=== PATIENT | male | born 1980 | race Caucasian/White ===

== ENCOUNTER 2016-09-28 17:25 | Inpatient (IN) | payer SELFPAY ==
[~2016-09-28] VITALS: Ht 188 cm; Wt 103.0 kg
[~2016-09-28 17:25] MED LIST: HYDR-971 PO; LEVO500T38 PO; NO HOME MEDICATIONS; OXYC5TAB88 PO
[2016-09-28] MEDS ORDERED: DIAZEPAM 10 MG/2 ML DISP.SYRIN. IV ONE ×3 (17:45→19:30)
--- NOTE | 2016-09-28 17:48 | PHYS DOC ---
Past Medical History Past Medical History: Alcoholism, Anxiety, Seizure, Other Additional Past Medical Histor: ADHD, ETOH LIVER,seizures r/t etoh withdrawl Past Surgical History: Cholecystectomy Additional Past Surgical Histo: steel plate in right hand Alcohol Use: Heavy Drug Use: Marijuana, Methamphetamine Adult General Chief Complaint Chief Complaint: WITHDRAWL HPI HPI Patient is a 35 year old male who presents after apparent alcohol withdrawal seizure. Patient's girlfriend present at bedside who contributes to history. She reports he tensed up, had generalized shaking and clenched fists, and bit his tongue. Upon coming to he was confused for a period of time. Patient reports he has tried to abruptly to cut down on his alcohol intake. Last week he drank about a gallon of Everclear over the course of 2-3 days. Today he has only had about 1-1/2 beers. He does report a history of alcohol withdrawal seizure in past. Review of Systems Review of Systems Constitutional: Denies fever or chills Eyes: Denies change in visual acuity or eye pain HENT: Denies nasal congestion or sore throat Respiratory: Denies cough or shortness of breath Cardiovascular: Denies chest pain GI: Denies abdominal pain, nausea, vomiting, bloody stools or diarrhea : Denies dysuria or hematuria Musculoskeletal: General body aches Integument: Denies rash or skin lesions Neurologic: Seizure, mild headache. Denies focal weakness or sensory changes Current Medications Current Medications Current Medications Medications (Trade) Dose Ordered Sig/Jareth Start Time Stop Time Status Last Admin Dose Admin Diazepam (Valium) 10 mg 1X ONCE 09/28/16 18:15 09/28/16 18:16 DC 09/28/16 18:53 10 MG Multivitamins/ Folic Acid/ Thiamine HCl/ Sodium Chloride (Infuvite Adult/ Iv Sodium Chloride 0.9% 1000ml Bag) 1,011.2 ml @ 1,000 mls/ hr 1X ONCE 09/28/16 18:00 09/28/16 19:00 DC 09/28/16 18:12 1,000 MLS/HR Allergies Allergies Allergies Coded Allergies Type Severity Reaction Last Updated Verified Penicillins Allergy Intermediate Rash 06/23/13 Yes Physical Exam Physical Exam Constitutional: Well developed, well nourished, non-toxic appearance HENT: Normocephalic, bilateral external ears normal; mild abrasion to L lateral tongue, tongue minimally swollen Eyes: PERRL, EOMI, conjunctiva normal, no discharge Neck: Normal range of motion, no stridor Cardiovascular: Tachycardic, regular rhythm, no murmur Lungs & Thorax: Bilateral breath sounds clear to auscultation Abdomen: Bowel sounds normal, soft, non-distended, no TTP Skin: Warm, diaphoretic, no erythema, no rash Extremities: No obvious deformity, no edema Neurologic: Alert and oriented X 3, GCS 15, CN II-XII grossly intact, strength intact and symmetrical throughout, sensation to light touch intact throughout, no dystaxia noted Psychologic: Affect normal, judgement normal, mood normal Current Patient Data Vital Signs Vital Signs Date Time Temp Pulse Resp B/P Pulse Ox O2 Delivery O2 Flow Rate FiO2 09/28/16 19:07 116 20 141/95 97 Room Air 09/28/16 17:33 98.0 98.0 Lab Values Laboratory Tests Test 09/28/16 17:30 09/28/16 17:37 White Blood Count 6.7x10^3/uL (4.0-11.0) Red Blood Count 4.71x10^6/uL (4.30-5.70) Hemoglobin 16.2g/dL (13.0-17.5) Hematocrit 47.0% (39.0-53.0) Mean Corpuscular Volume 100fL (79-100) Mean Corpuscular Hemoglobin 34pg (25-35) Mean Corpuscular Hemoglobin Concent 34g/dL (31-37) Red Cell Distribution Width 15.4% (11.5-14.5) H Platelet Count 91x10^3/uL (140-400) L Neutrophils (%) (Auto) 53% (31-73) Lymphocytes (%) (Auto) 38% (24-48) Monocytes (%) (Auto) 8% (0-9) Eosinophils (%) (Auto) 1% (0-3) Basophils (%) (Auto) 1% (0-3) Neutrophils # (Auto) 3.5x10^3uL (1.8-7.7) Lymphocytes # (Auto) 2.5x10^3/uL (1.0-4.8) Monocytes # (Auto) 0.5x10^3/uL (0.0-1.1) Eosinophils # (Auto) 0.1x10^3/uL (0.0-0.7) Basophils # (Auto) 0.0x10^3/uL (0.0-0.2) Sodium Level 141mmol/L (136-145) Potassium Level 3.4mmol/L (3.5-5.1) L Chloride Level 101mmol/L (98-107) Carbon Dioxide Level 16mmol/L (21-32) L Anion Gap 24 (6-14) H Blood Urea Nitrogen 9mg/dL (8-26) Creatinine 1.2mg/dL (0.7-1.3) Estimated GFR (Cockcroft-Gault) 69.3 Glucose Level 123mg/dL (70-99) H Calcium Level 9.7mg/dL (8.5-10.1) Magnesium Level 2.0mg/dL (1.8-2.4) Total Bilirubin 1.3mg/dL (0.2-1.0) H Direct Bilirubin 0.3mg/dL (0.0-0.2) H Aspartate Amino Transferase (AST) 183U/L (15-37) H Alanine Aminotransferase (ALT) 185U/L (16-63) H Alkaline Phosphatase 136U/L (46-116) H Total Protein 8.1g/dL (6.4-8.2) Albumin 3.9g/dL (3.4-5.0) Ethyl Alcohol Level 11mg/dL (0-10) H Lactic Acid Level 12.2mmol/L (0.4-2.0) *H Laboratory Tests 09/28/16 17:30 Laboratory Tests 09/28/16 17:30 EKG EKG EKG (my read): sinus rhythm, rate 117, normal axis, TWI leads V5-6, nonspecific ST changes Radiology/Procedures Radiology/Procedures CXR (my read): No acute abnormality Course & Med Decision Making Course & Med Decision Making Pertinent Labs and Imaging studies reviewed. (See chart for details) Patient is 35-year-old male who presents after apparent alcohol withdrawal seizure. Tachycardic and diaphoretic on exam. Will give IV Valium as needed as well as banana bag. Will check EKG, chest x-ray, labs to evaluate. Labs notable for lactic acidosis. Will give additional IV fluids, recheck lactic acid. EKG and imaging results as above. Discussed results with patient. Given total of 30mg IV valium while in ED with no further seizure activity; HR improved after meds and fluids. Discussed with Dr. Smith, will admit under his care for further evaluation and treatment. Dragon Disclaimer Dragon Disclaimer This electronic medical record was generated, in whole or in part, using a voice recognition dictation system. Departure Departure Impression: Primary Impression: Alcohol withdrawal seizure Disposition: ADMITTED INPATIENT Admitting Physician: Liliana Smith Condition: GUARDED Referrals: NO PCP (PCP) ALY DENTON MD Sep 28, 2016 17:48
[2016-09-28 17:51] LABS: BASO % 1 % (0-3); EOS % 1 % (0-3); HEMOGLOBIN 16.2 g/dL (13.0-17.5); LYMPH # 2.5 x10^3/uL (1.0-4.8); LYMPH % 38 % (24-48); MEAN CORPUSCULAR HEMOGLOBIN 34 pg (25-35); MEAN CORPUSCULAR HGB CONC 34 g/dL (31-37); MEAN CORPUSCULAR VOLUME 100 fL (79-100); MONO % 8 % (0-9); NEUT % 53 % (31-73); PLATELET COUNT 91 x10^3/uL (140-400); RED BLOOD COUNT 4.71 x10^6/uL (4.30-5.70); RED CELL DISTRIBUTION WIDTH 15.4 % (11.5-14.5); WHITE BLOOD COUNT 6.7 x10^3/uL (4.0-11.0)
[2016-09-28] MEDS ORDERED: MULTIVIT INFUSN,ADULT 4,VIT K 10 ML, FOLIC ACID 1 MG, THIAMINE 100 MG in IV NORMAL SALI... IV ONE (18:00)
[2016-09-28 18:06] LABS: CALCIUM 9.7 mg/dL (8.5-10.1); CREATININE 1.2 mg/dL (0.7-1.3); GFR 69.3; POTASSIUM 3.4 mmol/L (3.5-5.1)
[2016-09-28 18:13] LABS: ALBUMIN 3.9 g/dL (3.4-5.0); DIRECT BILIRUBIN 0.3 mg/dL (0.0-0.2); TOTAL BILIRUBIN 1.3 mg/dL (0.2-1.0); TOTAL PROTEIN 8.1 g/dL (6.4-8.2)
[2016-09-28] MEDS ORDERED: ONDANSETRON PF 4 MG/2 ML VIAL. IV PRN (19:30)
[2016-09-28] MEDS ORDERED: ACETAMINOPHEN 325 MG TABLET. PO PRN (19:30)
[2016-09-28] MEDS ORDERED: IV NORMAL SALINE 1000ML BAG 1,000 ML IV SCH (19:30)
[2016-09-28] MEDS ORDERED: IV NORMAL SALINE 1000ML BAG 1,000 ML IV ONE (19:30)
[2016-09-28] MEDS ORDERED: LORAZEPAM 2 MG/ML VIAL IV PRN ×2 (19:30)
[2016-09-28] MEDS ORDERED: DIAZEPAM 10 MG/2 ML DISP.SYRIN. IV PRN (19:45)
[2016-09-28 20:59] LABS: BILIRUBIN,URINE SMALL (NEG); GLUCOSE,URINE NEGATIVE (NEG); NITRITE,URINE NEGATIVE (NEG); PROTEIN,URINE 100 mg/dL (NEG-TRACE)
[2016-09-28 21:04] LABS: BARBITURATES NEG (NEG); BENZODIAZEPINES POS (NEG); CANNABINOIDS NEG (NEG); COCAINE NEG (NEG); METHADONE NEG (NEG); OPIATES NEG (NEG); PHENCYCLIDINE NEG (NEG)
[2016-09-28 21:05] LABS: BACTERIA,URINE 0 /HPF (0-FEW); ETHANOL, URINE NEG (NEG); RBC,URINE OCC /HPF (0-2); SQUAMOUS EPITHELIAL CELL,UR OCC /LPF
--- NOTE | 2016-09-28 23:29 | HP ---
ADMIT DATE: 09/28/2016 CHIEF COMPLAINT: Seizure, alcohol withdrawal. HISTORY OF PRESENT ILLNESS: The patient is a pleasant 35-year-old male who states he drinks a gallon of Everclear every couple of days. He has been trying to come off of it and apparently did it too fast, now he has had seizures. I discussed the case with the ER physician. We are to admit the patient with alcohol withdrawal protocol. PAST MEDICAL HISTORY: Alcoholism, ADHD, anxiety, previous seizures, cholecystectomy, steel plate in the right hand, methamphetamine abuse, marijuana abuse. ALLERGIES: PENICILLIN. FAMILY HISTORY: Hypertension. SOCIAL HISTORY: He is . He drinks heavily. He smokes heavily. He does drugs. MEDICATIONS: Reviewed, please refer to the MRAD. REVIEW OF SYSTEMS: GENERAL: No history of weight change, weakness or fevers. SKIN: No bruising, hair changes or rashes. EYES: No blurred, double or loss of vision. NOSE AND THROAT: No history of nosebleeds, hoarseness or sore throat. HEART: No history of palpitations, chest pain or shortness of breath on exertion. LUNGS: Denies cough, hemoptysis, wheezing or shortness of breath. GASTROINTESTINAL: Denies changes in appetite, nausea, vomiting, diarrhea or constipation. GENITOURINARY: No history of frequency, urgency, hesitancy or nocturia. NEUROLOGIC: Complains of alcohol withdrawal symptoms and seizures. PSYCHIATRIC: No history of panic, anxiety or depression. ENDOCRINE: No history of heat or cold intolerance, polyuria or polydipsia. EXTREMITIES: Denies muscle weakness, joint pain, pain on walking or stiffness. PHYSICAL EXAMINATION: VITAL SIGNS: Temperature afebrile, pulse 62, respirations 20, blood pressure 121/90. GENERAL: He is alert, cooperative in the ER, anxious. HEART: Normal S1, S2. LUNGS: Clear. ABDOMEN: Soft, positive bowel sounds, a little tender. EXTREMITIES: Trace edema. SKIN: No rashes. PSYCHIATRIC: He is anxious. VASCULAR: Good capillary refill. ENDOCRINE: No thyromegaly. LYMPHATICS: No cervical nodes. HEMATOPOIETIC: No bruising. LABORATORY DATA: Hematology normal other than a platelet count of 91. Electrolytes: Sodium 141, potassium 3.4, chloride 101, bicarbonate 16, BUN 9, creatinine , glucose 123. Lactic acid 12.2, we repeated it and now stands at 1.6. ASSESSMENT AND PLAN: Alcohol withdrawal seizures with incidental finding of lactic acidosis, which resolved, suspect that was from his seizures. We are going to admit the patient, consult Neurology for a second opinion. Alcohol withdrawal protocol. Replace his potassium. nutrition services aide consult. DAVIDL Romeo MCKNIGHT DO DR: PARISH/tena JOB#: [id number] / [id number]
[2016-09-29 03:00] VITALS: BP 137/88
[2016-09-29 05:58] LABS: BASO % 1 % (0-3); EOS % 1 % (0-3); HEMATOCRIT 44.7 % (39.0-53.0); HEMOGLOBIN 14.9 g/dL (13.0-17.5); LYMPH # 1.6 x10^3/uL (1.0-4.8); LYMPH % 32 % (24-48); MEAN CORPUSCULAR HEMOGLOBIN 34 pg (25-35); MEAN CORPUSCULAR HGB CONC 33 g/dL (31-37); MEAN CORPUSCULAR VOLUME 101 fL (79-100); MONO % 9 % (0-9); NEUT % 57 % (31-73); PLATELET COUNT 66 x10^3/uL (140-400); RED BLOOD COUNT 4.44 x10^6/uL (4.30-5.70); RED CELL DISTRIBUTION WIDTH 15.2 % (11.5-14.5); WHITE BLOOD COUNT 4.8 x10^3/uL (4.0-11.0)
[2016-09-29 06:13] LABS: CREATININE 0.8 mg/dL (0.7-1.3); GFR 110.7; POTASSIUM 3.2 mmol/L (3.5-5.1)
--- NOTE | 2016-09-29 06:49 | EKG ---
[facility] [address] [place] [address] Test Date: 2016-09-28 Test Time: 17:46:20 Pat Name: BULMARO CORMIER Department: Room: 200 1 Gender: Male General Supervisor: : [id number] Requested By: ALY DENTON Order Number: [id number] Reading MD: Ifrah Reyes Measurements Intervals [place] Rate: 117 P: 6 NC: 138 QRS: 41 QRSD: 94 T: -28 QT: 296 QTc: 417 Interpretive Statements SINUS TACHYCARDIA T ABNORMALITY IN ANTEROLATERAL LEADS ABNORMAL ECG RI6.01 Compared to ECG 04/05/2014 22:52:58 No significant changes Electronically Signed On 09-30-2016 20:07:32 CDT by Ifrah Reyes
[2016-09-29 07:00] VITALS: BP 146/77
--- NOTE | 2016-09-29 08:27 | RAD ---
Portable chest, 09/28/2016: History: Seizure Comparison is made to a study from 04/06/2014. The heart size and pulmonary vascularity are normal. No pulmonary infiltrates are seen. There is no evidence of pleural fluid. IMPRESSION: No acute cardiopulmonary abnormality is detected.
[2016-09-29] MEDS ORDERED: INFLUENZA VAX SCREEN BY RX. MC PRN (08:30)
[2016-09-29] MEDS ORDERED: MULTIVITAMIN with MINERAL TABLET. PO SCH (09:00)
--- NOTE | 2016-09-29 09:44 | PDOC2 ---
NEUROLOGY CONSULT Date of Admission Date of Admission DATE: 09/29/16 TIME: 09:37 Reason for Consult Reason for Consult: Seizures Referring Physician Referring Physician: Dr. Smith Source Source: Chart review, Patient History of Present Illness History of Present Illness The patient is a 35-year-old right in a mail with history of alcohol-related seizures who had seizures yesterday after trying to withdraw himself from Everclear, which he drinks a gallon of a day. He feels fine now. He felt sore all over and had some facial twitching and blurred vision. Then he had a convulsive seizure. There is no history of stroke or significant head injury. Past Medical History Cardiovascular: HTN Pulmonary: Other (Sleep apnea) CENTRAL NERVOUS SYSTEM: Seizure GI: Irritable bowel disease Psych: Anxiety, Addictions, Depression Renal/: Other ( urinary retention) Past Surgical History Past Surgical History: Cholecystectomy, Other ( right-hand orthopedic) Family History Family History: Cancer Social History Social History , collects scrap metal, drinks as above, smokes tobacco, occasional methamphetamine Current Medications Current Medications Current Medications Multivitamins/ Folic Acid/ Thiamine HCl/ Sodium Chloride (Infuvite Adult/ Iv Sodium Chloride 0.9% 1000ml Bag) 1,011.2 ml @ 1,000 mls/ hr 1X ONCE IV Last administered on 09/28/16 18:12; Start 09/28/16 at 18:00; Stop 09/28/16 at 19:00 ; Status DC Diazepam (Valium) 10 mg 1X ONCE IV Last administered on 09/28/16 17:47; Start 09/28/16 at 17:45; Stop 09/28/16 at 17:46; Status DC Diazepam 10 mg 10 mg 1X ONCE IV Last administered on 09/28/16 18:53; Start at 18:15; Stop 09/28/16 at 18:16; Status DC Sodium Chloride (Iv Sodium Chloride 0.9% 1000ml Bag) 1,000 ml @ 1,000 mls/hr 1X ONCE IV Last administered on 09/28/16 19:35; Start 09/28/16 at 19:30; Stop 09/28/16 at 20:29; Status DC Ondansetron HCl 4 mg 4 mg PRN Q8HRS PRN IV NAUSEA/VOMITING; Start 09/28/16 at 19:30; Stop 09/29/16 at 19:29 Sodium Chloride (Iv Sodium Chloride 0.9% 1000ml Bag) 1,000 ml @ 150 mls/hr Q6H40M IV ; Start 09/28/16 at 19:30; Stop 09/29/16 at 19:29 Acetaminophen (Tylenol) 650 mg PRN Q4HRS PRN PO FEVER Last administered on 09/29 04:01; Start 09/28/16 at 19:30; Stop 09/29/16 at 19:29 Multivitamins (Thera M Plus) 1 tab DAILY PO ; Start 09/29/16 at 09:00 Lorazepam (Ativan) 2 mg PRN Q1HR PRN IV For CIWA 8-14 Last administered on 09/29 00:34; Start 09/28/16 at 19:30 Lorazepam (Ativan) 4 mg PRN Q1HR PRN IV For CIWA 15 or greater; Start 09/28/16 at 19:30 Diazepam (Valium) 10 mg 1X ONCE IV Last administered on 09/28/16 19:50; Start 09/28/16 at 19:30; Stop 09/28/16 at 19:44; Status DC Diazepam (Valium) 10 mg PRN Q5MIN PRN IV COMM Last administered on 09/29/16 04 :02; Start 09/28/16 at 19:45 Info (Do NOT chart on this placeholder) 1 each PRN 1X PRN MC SEE COMMENTS; Start 09/29/16 at 08:30; Status UNV Influenza Virus Vaccine Quadrival (Fluarix Quad [id number] Syringe) 0.5 ml ONCE ONCE VAX IM ; Start 09/29/16 at 10:00; Stop 09/29/16 at 10:01 Active Scripts Active Levaquin (Levofloxacin) 500 Mg Tablet 500 Mg PO DAILY Roxicodone (Oxycodone HCl) 5 Mg Tablet 5 Mg PO PRN Q6HRS PRN Roberts 5-325 Tablet (Acetaminophen/Hydrocodone Bitart) 1 Each Tablet 1 Each PO Q6HRS PRN Reported [No Home Medications] Allergies Allergies: Coded Allergies: Penicillins (Verified Allergy, Intermediate, Rash, 06/23/13) Physical Exam Physical Examination PHYSICAL EXAMINATION: Vital signs: see above. General appearance is normal and in no acute distress. HEENT: Normocephalic and nontraumatic. Eyes, nose, ears, and throat are unremarkable. Neck is supple. No lymphadenopathy. No bruits are heard over the carotid artery. No crepitus. NEUROLOGICAL EXAMINATION: Mental Status Examination: Alert. Oriented to time, place, and person. Answers questions and follows commends. Pupils are equal round and reactive to light and accommodation. Extraocular movements are intact. Visual field exam shows no defect on the direct confrontation. No motor or sensory deficits on the facial exam. Uvula in the midline and the soft palate elevated symmetrically. No deviation of the tongue to any direction. Gross hearing is normal. Shoulder shrug normal. Muscle tone is normal. Muscle strength is 5. Deep tendon reflexes are 2+ all around. Plantar reflex is with flexion response bilaterally. Bmbivs-[id number] test performance is accurate. Alternative movements are accurate. Gait is antalgic. Sensory exam shows no deficits. No cerebellar signs are elicited. Vitals VITALS Vital Signs Date Time Temp Pulse Resp B/P Pulse Ox O2 Delivery O2 Flow Rate FiO2 09/29/16 07:00 99.1 96 22 146/77 96 Room Air 99.1 Labs Labs Laboratory Tests Test 09/28/16 17:30 09/28/16 17:37 09/28/16 19:36 09/28/16 20:50 White Blood Count 6.7x10^3/uL (4.0-11.0) Red Blood Count 4.71x10^6/uL (4.30-5.70) Hemoglobin 16.2g/dL (13.0-17.5) Hematocrit 47.0% (39.0-53.0) Mean Corpuscular Volume 100fL (79-100) Mean Corpuscular Hemoglobin 34pg (25-35) Mean Corpuscular Hemoglobin Concent 34g/dL (31-37) Red Cell Distribution Width 15.4% (11.5-14.5) Platelet Count 91x10^3/uL (140-400) Neutrophils (%) (Auto) 53% (31-73) Lymphocytes (%) (Auto) 38% (24-48) Monocytes (%) (Auto) 8% (0-9) Eosinophils (%) (Auto) 1% (0-3) Basophils (%) (Auto) 1% (0-3) Neutrophils # (Auto) 3.5x10^3uL (1.8-7.7) Lymphocytes # (Auto) 2.5x10^3/uL (1.0-4.8) Monocytes # (Auto) 0.5x10^3/uL (0.0-1.1) Eosinophils # (Auto) 0.1x10^3/uL (0.0-0.7) Basophils # (Auto) 0.0x10^3/uL (0.0-0.2) Sodium Level 141mmol/L (136-145) Potassium Level 3.4mmol/L (3.5-5.1) Chloride Level 101mmol/L (98-107) Carbon Dioxide Level 16mmol/L (21-32) Anion Gap 24 (6-14) Blood Urea Nitrogen 9mg/dL (8-26) Creatinine 1.2mg/dL (0.7-1.3) Estimated GFR (Cockcroft-Gault) 69.3 Glucose Level 123mg/dL (70-99) Calcium Level 9.7mg/dL (8.5-10.1) Magnesium Level 2.0mg/dL (1.8-2.4) Total Bilirubin 1.3mg/dL (0.2-1.0) Direct Bilirubin 0.3mg/dL (0.0-0.2) Aspartate Amino Transf (AST/SGOT) 183U/L (15-37) Alanine Aminotransferase (ALT/SGPT) 185U/L (16-63) Alkaline Phosphatase 136U/L (46-116) Total Protein 8.1g/dL (6.4-8.2) Albumin 3.9g/dL (3.4-5.0) Ethyl Alcohol Level 11mg/dL (0-10) Lactic Acid Level 12.2mmol/L (0.4-2.0) 1.8mmol/L (0.4-2.0) Urine Collection Type Unknown Urine Color Mansi Urine Clarity Clear Urine pH 7.0 Urine Specific Blythe 1.020 Urine Protein 100mg/dL (NEG-TRACE) Urine Glucose (UA) Negativemg/dL (NEG) Urine Ketones (Stick) Negativemg/dL (NEG) Urine Blood Negative (NEG) Urine Nitrite Negative (NEG) Urine Bilirubin Small (NEG) Urine Urobilinogen Dipstick 4.0mg/dL (0.2 mg/dL) Urine Leukocyte Esterase Trace (NEG) Urine RBC Occ/HPF (0-2) Urine WBC 1-4/HPF (0-4) Urine Squamous Epithelial Cells Occ/LPF Urine Bacteria 0/HPF (0-FEW) Urine Hyaline Casts Few/HPF Urine Mucus Mod/LPF Urine Opiates Screen Neg (NEG) Urine Methadone Screen Neg (NEG) Urine Barbiturates Neg (NEG) Urine Phencyclidine Screen Neg (NEG) Urine Amphetamine/Methamphetamine Pos (NEG) Urine Benzodiazepines Screen Pos (NEG) Urine Cocaine Screen Neg (NEG) Urine Cannabinoids Screen Neg (NEG) Urine Ethyl Alcohol Neg (NEG) Test 09/28/16 22:00 09/29/16 05:25 Lactic Acid Level 1.6mmol/L (0.4-2.0) White Blood Count 4.8x10^3/uL (4.0-11.0) Red Blood Count 4.44x10^6/uL (4.30-5.70) Hemoglobin 14.9g/dL (13.0-17.5) Hematocrit 44.7% (39.0-53.0) Mean Corpuscular Volume 101fL (79-100) Mean Corpuscular Hemoglobin 34pg (25-35) Mean Corpuscular Hemoglobin Concent 33g/dL (31-37) Red Cell Distribution Width 15.2% (11.5-14.5) Platelet Count 66x10^3/uL (140-400) Neutrophils (%) (Auto) 57% (31-73) Lymphocytes (%) (Auto) 32% (24-48) Monocytes (%) (Auto) 9% (0-9) Eosinophils (%) (Auto) 1% (0-3) Basophils (%) (Auto) 1% (0-3) Neutrophils # (Auto) 2.8x10^3uL (1.8-7.7) Lymphocytes # (Auto) 1.6x10^3/uL (1.0-4.8) Monocytes # (Auto) 0.4x10^3/uL (0.0-1.1) Eosinophils # (Auto) 0.1x10^3/uL (0.0-0.7) Basophils # (Auto) 0.0x10^3/uL (0.0-0.2) Sodium Level 138mmol/L (136-145) Potassium Level 3.2mmol/L (3.5-5.1) Chloride Level 102mmol/L (98-107) Carbon Dioxide Level 25mmol/L (21-32) Anion Gap 11 (6-14) Blood Urea Nitrogen 8mg/dL (8-26) Creatinine 0.8mg/dL (0.7-1.3) Estimated GFR (Cockcroft-Gault) 110.7 Glucose Level 102mg/dL (70-99) Calcium Level 9.0mg/dL (8.5-10.1) Laboratory Tests Test 09/28/16 17:30 09/28/16 17:37 09/28/16 19:36 09/28/16 20:50 White Blood Count 6.7x10^3/uL (4.0-11.0) Red Blood Count 4.71x10^6/uL (4.30-5.70) Hemoglobin 16.2g/dL (13.0-17.5) Hematocrit 47.0% (39.0-53.0) Mean Corpuscular Volume 100fL (79-100) Mean Corpuscular Hemoglobin 34pg (25-35) Mean Corpuscular Hemoglobin Concent 34g/dL (31-37) Red Cell Distribution Width 15.4% (11.5-14.5) Platelet Count 91x10^3/uL (140-400) Neutrophils (%) (Auto) 53% (31-73) Lymphocytes (%) (Auto) 38% (24-48) Monocytes (%) (Auto) 8% (0-9) Eosinophils (%) (Auto) 1% (0-3) Basophils (%) (Auto) 1% (0-3) Neutrophils # (Auto) 3.5x10^3uL (1.8-7.7) Lymphocytes # (Auto) 2.5x10^3/uL (1.0-4.8) Monocytes # (Auto) 0.5x10^3/uL (0.0-1.1) Eosinophils # (Auto) 0.1x10^3/uL (0.0-0.7) Basophils # (Auto) 0.0x10^3/uL (0.0-0.2) Sodium Level 141mmol/L (136-145) Potassium Level 3.4mmol/L (3.5-5.1) Chloride Level 101mmol/L (98-107) Carbon Dioxide Level 16mmol/L (21-32) Anion Gap 24 (6-14) Blood Urea Nitrogen 9mg/dL (8-26) Creatinine 1.2mg/dL (0.7-1.3) Estimated GFR (Cockcroft-Gault) 69.3 Glucose Level 123mg/dL (70-99) Calcium Level 9.7mg/dL (8.5-10.1) Magnesium Level 2.0mg/dL (1.8-2.4) Total Bilirubin 1.3mg/dL (0.2-1.0) Direct Bilirubin 0.3mg/dL (0.0-0.2) Aspartate Amino Transf (AST/SGOT) 183U/L (15-37) Alanine Aminotransferase (ALT/SGPT) 185U/L (16-63) Alkaline Phosphatase 136U/L (46-116) Total Protein 8.1g/dL (6.4-8.2) Albumin 3.9g/dL (3.4-5.0) Ethyl Alcohol Level 11mg/dL (0-10) Lactic Acid Level 12.2mmol/L (0.4-2.0) 1.8mmol/L (0.4-2.0) Urine Collection Type Unknown Urine Color Mansi Urine Clarity Clear Urine pH 7.0 Urine Specific Blythe 1.020 Urine Protein 100mg/dL (NEG-TRACE) Urine Glucose (UA) Negativemg/dL (NEG) Urine Ketones (Stick) Negativemg/dL (NEG) Urine Blood Negative (NEG) Urine Nitrite Negative (NEG) Urine Bilirubin Small (NEG) Urine Urobilinogen Dipstick 4.0mg/dL (0.2 mg/dL) Urine Leukocyte Esterase Trace (NEG) Urine RBC Occ/HPF (0-2) Urine WBC 1-4/HPF (0-4) Urine Squamous Epithelial Cells Occ/LPF Urine Bacteria 0/HPF (0-FEW) Urine Hyaline Casts Few/HPF Urine Mucus Mod/LPF Urine Opiates Screen Neg (NEG) Urine Methadone Screen Neg (NEG) Urine Barbiturates Neg (NEG) Urine Phencyclidine Screen Neg (NEG) Urine Amphetamine/Methamphetamine Pos (NEG) Urine Benzodiazepines Screen Pos (NEG) Urine Cocaine Screen Neg (NEG) Urine Cannabinoids Screen Neg (NEG) Urine Ethyl Alcohol Neg (NEG) Test 09/28/16 22:00 09/29/16 05:25 Lactic Acid Level 1.6mmol/L (0.4-2.0) White Blood Count 4.8x10^3/uL (4.0-11.0) Red Blood Count 4.44x10^6/uL (4.30-5.70) Hemoglobin 14.9g/dL (13.0-17.5) Hematocrit 44.7% (39.0-53.0) Mean Corpuscular Volume 101fL (79-100) Mean Corpuscular Hemoglobin 34pg (25-35) Mean Corpuscular Hemoglobin Concent 33g/dL (31-37) Red Cell Distribution Width 15.2% (11.5-14.5) Platelet Count 66x10^3/uL (140-400) Neutrophils (%) (Auto) 57% (31-73) Lymphocytes (%) (Auto) 32% (24-48) Monocytes (%) (Auto) 9% (0-9) Eosinophils (%) (Auto) 1% (0-3) Basophils (%) (Auto) 1% (0-3) Neutrophils # (Auto) 2.8x10^3uL (1.8-7.7) Lymphocytes # (Auto) 1.6x10^3/uL (1.0-4.8) Monocytes # (Auto) 0.4x10^3/uL (0.0-1.1) Eosinophils # (Auto) 0.1x10^3/uL (0.0-0.7) Basophils # (Auto) 0.0x10^3/uL (0.0-0.2) Sodium Level 138mmol/L (136-145) Potassium Level 3.2mmol/L (3.5-5.1) Chloride Level 102mmol/L (98-107) Carbon Dioxide Level 25mmol/L (21-32) Anion Gap 11 (6-14) Blood Urea Nitrogen 8mg/dL (8-26) Creatinine 0.8mg/dL (0.7-1.3) Estimated GFR (Cockcroft-Gault) 110.7 Glucose Level 102mg/dL (70-99) Calcium Level 9.0mg/dL (8.5-10.1) Assessment/Plan Assessment/Plan Impression: Alcohol-related seizures No prior imaging studies in the record Note that the nurse says that snuck him in alcohol last night. Urine drug screen positive for methamphetamine Recommendations: Brain MRI EEG would not help with management Abstinence Consider Benzodiazepine taper for discharge Okay to discharge today Follow-up with neurology has needed Thank you for letting me help with the patient's care FRANCIS LEW MD Sep 29, 2016 09:44
[2016-09-29] MEDS ORDERED: FLU VACC QUAD 2016-17 (36MOS+)/PF 0.5 ML SYRINGE. VAX IM ONE (10:00)
[2016-09-29] MEDS ORDERED: LORAZEPAM 1 MG TABLET. PO PRN (10:30)
[2016-09-29 11:00] VITALS: BP 137/98
--- NOTE | 2016-09-29 11:26 | RAD ---
PROCEDURE MRI brain without contrast. HISTORY Seizures, history of substance abuse and alcoholism, vision loss TECHNIQUE Multiplanar, multi sequential, non contrast MR imaging was performed of the brain. COMPARISON None FINDINGS Exam is degraded by severe motion degradation for almost all image sequences, diffusion sequence diagnostic. There is no restricted diffusion to suggest a recent infarct or cytotoxic edema. There is no midline shift or obvious extra-axial fluid collection. Ventricular size is considered within normal limits. Accurate evaluation for signal abnormality is very limited due to the degree of motion, no large areas of confluent signal abnormality identified. There is gross preservation of the major arterial intracranial flow voids at the skull base. Mastoids are grossly aerated. There is severe left maxillary sinus mucosal thickening. Cerebellar tonsils are normal location. There is no obvious abnormality of the pineal gland or pituitary gland. IMPRESSION 1. Exam is very limited due to severe motion. There is no evidence of recent infarct or obvious intracranial mass effect. 2. There is severe left maxillary sinus mucosal thickening. Electronically signed by: Elian Wren MD (Sep 29, 2016 11:24:50)
--- NOTE | 2016-10-01 05:16 | DS ---
DATE OF DISCHARGE: 09/29/2016 SHORT STAY AND DISCHARGE SUMMARY CHIEF COMPLAINT: Alcohol withdrawal seizures. HOSPITAL COURSE: The patient is a 35-year-old gentleman who apparently ingest a gallon of Everclear every couple of days. He had been trying to wean himself off and presented to the Emergency Room with seizures. He was therefore admitted for alcohol withdrawal protocol. The rest of history was obtained from chart as the patient left AMA. PAST MEDICAL HISTORY: Alcohol, ADHD, anxiety, history of seizures associated with alcoholism, status post cholecystectomy, and multidrug abuse. FAMILY HISTORY: Hypertension. SOCIAL HISTORY: He is , drinking heavily, smoking heavily and using drugs including cannabis and meths. ALLERGIES: PENICILLIN. MEDICATIONS: Please refer to MAR. PHYSICAL EXAMINATION: Could not be obtained as the patient left before being seen. DISCHARGE DATE: 09/29/2016. DISCHARGE DISPOSITION: AMA DONNY TELLO MD DR: UR/nts JOB#: [id number] / [id number] RITA
--- NOTE | 2016-10-01 06:25 | ACF ---
Admission Forms Criteria ALCOHOL AND PSYCHOACTIVE SUBSTANCE WITHDRAWAL Clinical Indications for Inpatient Care (Place ' X' for any and all applicable criteria): Ongoing inpatient care may be indicated for substance withdrawal[B][C] with ANY ONE of the following(1)(2)(3)(4)(21): [ ]I. Delirium due to alcohol or sedative[D] withdrawal is present. [ ]II. Marked signs of withdrawal are present as indicated by ANY ONE of the following(15)(22)(23) [ ]a) Heart rate greater than 120 beats per minute is present. [ ]b) Severe vomiting is present (eg, precludes maintenance of oral hydration). [ ]c) Grossly visible tremor is present. [ ]d) Profuse perspiration is present. [ ]e) Temperature greater than 101 degrees F (38.3 degrees C) is present. [ ]f) Other signs of severe withdrawal are present (eg, Altered mental status ) [ ]g) Severe withdrawal identified by standardized assessment score[A] [ ]III. Signs of withdrawal that require continued inpatient treatment as indicated by ANY ONE of the following(15)(22)(23): [ ]a) Inadequate response to pharmacotherapy (eg, benzodiazepines) [ ]b) Outpatient or lower level of care is not feasible or appropriate (eg, unavailable or inappropriate to patient condition or treatment history). [X]IV. Withdrawal signs with high-risk indicator are present as manifested by ALL of the following[A](15)(22)(23) [X]a) Signs of withdrawal are present as indicated by ANY ONE of the following: [X]i. Tachycardia is present. [ ]ii. Nausea or vomiting is present. [ ]iii. Tremor is present. [ ]iv. Increased perspiration is present. [ ]v. Other signs of withdrawal are present. [ ]vi. Withdrawal identified by standardized assessment score [A] [X]b) Elevated risk due to historical or comorbid factor is present as indicated by ANY ONE of the following: [ ]i. History of delirium due to withdrawal is present. [X]ii. History of seizures due to withdrawal is present.[E] [ ]iii. Intrinsic seizure disorder (epilepsy) is present. [ ]iv. Patient is . [ ]v. Other significant medical history (eg, severe cardiac disease) is present, which is assessed to be at risk for destabilization due to withdrawal. [ ]V. Serious electrolyte abnormalities (eg, hyponatremia, hypokalemia, hypophosphatemia) requiring correction performable only in inpatient setting(6)(25) [ ]. Severe hypoglycemia requiring glucose infusions performable only in inpatient setting(6) [ ]VII. Drug toxicity or instability, such as Altered mental status, respiratory depression, or arrhythmias, that requires inpatient care [ ]VIII. Danger judged unmanageable at lower level of care because of ANY ONE of the following [ ]a) Danger to self [ ]b) Danger to others [ ]c) Grave disability (eg, inability to perform self-care necessary at lower level of care) The original [facility] content created by [facility] has been revised. The portions of the content which have been revised are identified through the use of italic text or in bold. [facility] has neither reviewed nor approved the modified material. All other unmodified content is copyright [employer]. Please see references footnoted in the original [facility] Care[facility] edition 2016 Admission Criteria Met?: Yes ANDREA RIVERA Oct 01, 2016 06:25
== END 2016-09-29 13:24 | disposition left against medical advice (07) | DRG 894 ==
LOC: ER 17:25 → 2 NORTH 19:28
PROVIDERS: ADMIT Internal Medicine; ATTEND Internal Medicine
DX: F10.239 Alcohol dependence with withdrawal, unspecified (principal); E87.2 Acidosis; F17.200 Nicotine dependence, unspecified, uncomplicated; F90.9 Attention-deficit hyperactivity disorder, unspecified type; I10 Essential (primary) hypertension; K58.9 Irritable bowel syndrome, unspecified; R56.9 Unspecified convulsions; F12.10 Cannabis abuse, uncomplicated; F15.10 Other stimulant abuse, uncomplicated; F32.9 Major depressive disorder, single episode, unspecified; F41.9 Anxiety disorder, unspecified; Z82.49 Family history of ischemic heart disease and other diseases of the circulatory system; Z90.49 Acquired absence of other specified parts of digestive tract; Z88.0 Allergy status to penicillin
CPT/HCPCS: 36415; 70551; 71010; 80048; 80076; 81001; 83605; 83735; 85027; 87086; 93005; G0480; G0481; J2060; J3360; J7030

== ENCOUNTER 2017-11-19 20:26 | Emergency (ER) | payer SELFPAY | END 2017-11-20 00:34 | disposition home or self-care (01) | LOC: ER 11-20 00:34 | DX: M76.62 Achilles tendinitis, left leg (principal); F12.10 Cannabis abuse, uncomplicated; F15.10 Other stimulant abuse, uncomplicated; Z90.49 Acquired absence of other specified parts of digestive tract; Z88.0 Allergy status to penicillin | CPT/HCPCS: 29515; 93971; 99284 ==